=== PATIENT | male | born 1990 | race Caucasian/White ===

== ENCOUNTER 2024-08-08 09:54 | Emergency (ER) | payer BC, SELFPAY ==
[2024-08-08 10:09] VITALS: BP 156/77
--- NOTE | 2024-08-08 10:09 | ED.GENMED ---
ED Provider Triage
<Min Mohan PA-C - Last Filed: 08/08/24 10:12>
-
Patient seen by provider in Triage?: Seen in Triage
Attestation: A medical screening examination has been initiated by a qualified medical provider. Based on the assessment performed at this time, it has been determined that an emergent medical condition may exist and the patient has been informed
that further medical evaluation and possible additional diagnostic testing may be needed.
HPI: 34-year-old male presents to the emergency department for evaluation of left upper quadrant abdominal pain associated with a bulge for the past 2 days. No fevers or chills. No nausea or vomiting.
GENERAL: Alert , in no apparent distress
EYE: No visual abnormalities.
NECK: Trachea midline
ENT: No visible abnormalities.
LUNGS: No acute respiratory distress
NEUROLOGICAL: Alert and oriented
SKIN: Skin intact. No visible changes.
MUSCULOSKELETAL: Moving extremities normally
PSYCH: Normal and appropriate interaction.
This is a medical evaluation conducted in person to initiate diagnostic evaluation and provide initial therapeutics. Please see further documentation by the treating clinician.
History of Present Illness
<Min Mohan PA-C - Last Filed: 08/08/24 10:12>
General
Chief Complaint: Abdominal Pain
Time Seen by Provider: 08/08/24 10:56
<Janet So MD, Resident - Last Filed: 08/08/24 14:11>
General
Source: patient
Nursing documentation reviewed up to this point in time: agreed with
History of Present Illness
History of Present Illness:
34yo M with PMH T1DM, anxiety who presents from home to ED for evaluation of abdominal pain and lump. He reports discomfort and constant pressure in LUQ starting Sunday evening while at rest. He also reports intermittent pain that occurs about
10x per day, lasts briefly, triggered and relieved by moving positions, and rated 3/10 on pain scale. Mild lightheadedness with standing, no vertigo. He had mild nausea this morning that resolved without intervention. Denies vomiting, change in
bowel habits, difficulty eating/drinking. He recently moved to this area and has initial appointment with PCP next week.
Past History
<Janet So MD, Resident - Last Filed: 08/08/24 14:11>
Past History
ED Past Medical History: IDDM (T1DM) and Psychiatric (anxiety)
ED Past Surgical History: None
Patient has exhibited threatening behavior?: No
Social History
Tobacco: Non-smoker
Alcohol: Occasional
Drug: None
Personal:
Living: with family
Family History
Family History: Other (noncontributory)
Review of Systems
<Janet So MD, Resident - Last Filed: 08/08/24 14:11>
Review of Systems
Allergies reviewed?: Yes
Constitutional: Reports no symptoms; Denies fever, fatigue or chills
EENT: Reports no symptoms
Respiratory: Reports no symptoms; Denies cough, hemoptysis or trouble breathing
Cardiac: Reports no symptoms; Denies chest pain, palpitations or syncope
ABD/GI: Reports abdominal pain (see HPI); Denies vomiting, diarrhea, constipated, bloody stools or black stools
: Reports no symptoms
Musculoskeletal: Reports no symptoms
Skin: Reports no symptoms
Neurological: Reports no symptoms
Endocrine: Reports no symptoms
Hematologic/Lymphatic: Reports no symptoms
Psychiatric: Reports no symptoms
Phy Exam
<Janet So MD, Resident - Last Filed: 08/08/24 14:11>
General Physical Exam
General Presentation: well appearing and no apparent distress
General age: appears stated age
General Skin: warm and dry
General Habitus: normal
General Mental: alert
General Hydration: appears well hydrated
Cardiovascular Exam
Cardiovascular Exam: regular rate/rhythm, no edema and no murmur
Pulmonary Exam
Pulmonary Exam: lungs clear, no respiratory distress, no crackles, no rhonchi, no wheezing and no cough
Oxygen Status: room air
Gastrointestinal Exam
Gastrointestinal Exam: non tender, soft, no organomegaly, no pulsatile mass, non distended and other (<1 cm subcutaneous nodule palpable LUQ laterally, mild TTP; no rebound/rigidity/guarding, no peritoneal signs)
Neurological Exam
Neurological Exam: alert, oriented x3, no motor deficits, no sensory deficits and speech normal
Skin Exam
Skin Exam: normal color and warm/dry
Psychiatric Exam
Psychiatric Exam: normal mood/affect
Course
<Min Mohan PA-C - Last Filed: 08/08/24 10:12>
Orders/Labs/Results
Orders:
Orders
08/08/24 10:11
US Abdomen Complete/Upper Urgent
Comment:
Reason For Exam: LUQ pain
08/08/24 10:16
Complete Blood Count/With Diff Urgent
Comprehensive Metabolic Panel Urgent
Lipase Urgent
Abnormal Lab Results
08/08/24
10:16
WBC 4.5 L 10^3/uL
(4.8-10.8)
Glucose 207 H mg/dl
(70-99)
Albumin 5.1 H g/dl
(3.5-5.0)
08/08/24 10:16
08/08/24 10:16
Vital Signs
Initial and Last Documented VS:
Initial Vital Signs
Temp Pulse Resp BP Pulse Ox
97.7 F 75 20 156/77 100
08/08/24 10:09 08/08/24 10:09 08/08/24 10:09 08/08/24 10:09 08/08/24 10:09
Last Documented Vital Signs
Temp Pulse Resp BP Pulse Ox
97.7 F 75 20 156/77 100
08/08/24 10:09 08/08/24 10:09 08/08/24 10:09 08/08/24 10:09 08/08/24 10:09
<Janet So MD, Resident - Last Filed: 08/08/24 14:11>
Orders/Labs/Results
Orders:
Orders
08/08/24 10:11
US Abdomen Complete/Upper Urgent
Comment:
Reason For Exam: LUQ pain
08/08/24 10:16
Complete Blood Count/With Diff Urgent
Comprehensive Metabolic Panel Urgent
Lipase Urgent
Abnormal Lab Results
08/08/24
10:16
WBC 4.5 L 10^3/uL
(4.8-10.8)
Glucose 207 H mg/dl
(70-99)
Albumin 5.1 H g/dl
(3.5-5.0)
08/08/24 10:16
08/08/24 10:16
Vital Signs
Initial and Last Documented VS:
Initial Vital Signs
Temp Pulse Resp BP Pulse Ox
97.7 F 75 20 156/77 100
08/08/24 10:09 08/08/24 10:09 08/08/24 10:09 08/08/24 10:09 08/08/24 10:09
Last Documented Vital Signs
Temp Pulse Resp BP Pulse Ox
97.7 F 75 156/77 100
08/08/24 10:09 08/08/24 10:09 08/08/24 10:09 08/08/24 10:09 08/08/24 10:09
<Arthur Kohler, DO - Last Filed: 08/08/24 11:40>
Orders/Labs/Results
Orders:
Orders
08/08/24 10:11
US Abdomen Complete/Upper Urgent
Comment:
Reason For Exam: LUQ pain
08/08/24 10:16
Complete Blood Count/With Diff Urgent
Comprehensive Metabolic Panel Urgent
Lipase Urgent
Abnormal Lab Results
08/08/24
10:16
WBC 4.5 L 10^3/uL
(4.8-10.8)
Glucose 207 H mg/dl
(70-99)
Albumin 5.1 H g/dl
(3.5-5.0)
08/08/24 10:16
08/08/24 10:16
Vital Signs
Initial and Last Documented VS:
Initial Vital Signs
Temp Pulse Resp BP Pulse Ox
97.7 F 75 20 156/77 100
08/08/24 10:09 08/08/24 10:09 08/08/24 10:09 08/08/24 10:09 08/08/24 10:09
Last Documented Vital Signs
Temp Pulse Resp BP Pulse Ox
97.7 F 75 20 156/77 100
08/08/24 10:09 08/08/24 10:09 08/08/24 10:09 08/08/24 10:09 08/08/24 10:09
<Janet So MD, Resident - Last Filed: 08/08/24 14:11>
MDM/Problems Addressed
Differential Diagnosis Includes:
muscle strain, ventral wall hernia, reactive lymph node
not suspicious for gallbladder disease, pancreatitis
MDM/Problems Addressed:
34yo M with PMH T1DM, anxiety who presents to ED for evaluation of LUQ discomfort and nodule
CBC, CMP, lipase ordered prior to evaluation unremarkable
Will obtain abdominal US
<Janet So MD, Resident - Last Filed: 08/08/24 14:11>
*Critical Care Note
Total Time (30-74mins, 75-104mins- exclusive of procedures): Not Applicable
<Janet So MD, Resident - Last Filed: 08/08/24 14:11>
Update Note
Update Note:
Abdominal ultrasound unremarkable. Suspect muscle strain. Stable for discharge home with supportive measures and follow up with PCP-- has appointment on Sunday. Return to ED precautions reviewed.
Discussed above with patient-- he is understanding and agreeable with plan.
ED Attending Note
<Min Mohan PA-C - Last Filed: 08/08/24 10:12>
-
Portions of this chart may have been created with voice recognition software.� Occasional wrong word or��sound alike� substitutions may have occurred due to the inherent limitations of voice recognition software.
<Arthur Kohler, - Last Filed: 08/08/24 11:40>
ED Attending Note
Patient seen and examined by attending physician: Yes
I performed a history and physical exam of patient and discussed management with resident, I reviewed resident's note and agree with documented findings and plan of care.: Yes
ED Attending Note:
I reviewed and agree with history and treatment plan by Janet So MD. My exam revealed
Physical Exam
General: no apparent distress, not acutely ill
Neck: supple. no meningeal signs. normal posterior pharynx
Heart: s1/s2 regular rate and rhythm, no murmur. equal radial
pulses.
HEENT: Pupils equal round reactive to light, EOMI
Lungs: no acute respiratory distress. clear bilaterally
Abdomen: normal bowel sounds. Mild point tenderness below the 10th rib laterally on the left, no rebound or guarding. no CVAT
Neuro: alert and oriented. no focal neurological deficits cranial nerves II through XII intact
Skin: no rash
Psychiatric: well kept. interactive and cooperative
Extremities: no edema. no calf tenderness. negative homans. good distal pulses
Discharge Plan
Departure
Patient Disposition: Home (Routine Discharge)
Date of Disposition: 08/08/24
Time of Disposition: 13:59
Patient with high blood pressure during this ER visit?: Yes
Discharge Problem:
Abdominal pain
Instructions: Abdominal pain in adults - ED discharge instructions, BLOOD PRESSURE
Referrals:
NONE,* [Family Provider] -
Activity Restrictions/Additional Instructions:
You were seen in the Emergency Room for abdominal discomfort and a lump.
Your blood work was normal. Ultrasound of your abdomen was also normal.
You can try rest, heating pad, and pain relievers such as tylenol for the discomfort.
You have an appointment scheduled with a new Primary Care Provider on 08/12/24. Please keep that appointment.
Return to the Emergency Room if you develop worsening symptoms or new concerns.
Interventions
Interventions:
*Risk Screen - Suicide Last Done: 08/08/24 10:09
*General Assessment Last Done: 08/08/24 10:09
*Neglect/Abuse Screening Last Done: 08/08/24 10:09
ED- Fall Risk Assessment Last Done: 08/08/24 11:39
IH-Iklkab-Mbotevheab Assessment Last Done: 08/08/24 11:39
Discharge Date and Time
Print Language: [place]
[2024-08-08 10:23] LABS: % Basophils 0.7 % (0-2); % Eosinophils 2.4 % (0-6); % Lymphocytes 29.7 % (20.5-51.1); % Monocytes 7.7 % (1.7-9.3); % Neutrophils 59.5 % (42.2-75.2); Absolute Eosinophils 0.1 10^3/uL (0-0.7); Absolute Lymphocytes 1.4 10^3/uL (1.2-3.4); Absolute Monocytes 0.4 10^3/uL (0.1-0.6); Absolute Neutrophils 2.7 10^3/uL (1.4-6.5); Hematocrit 46.8 % (39.0-52.0); Hemoglobin 16.5 g/dL (13.0-18.0); Mean Corp Hgb Conc. 35.3 g/dL (33.0-37.0); Mean Corpuscular Hgb 30.4 pg (27.0-31.0); Mean Corpuscular Volume 86.3 fL (80.0-94.0); Mean Platelet Volume 10.1 fL (7.4-10.4); Nucleated Red Blood Cells % 0 % (-); Platelet Count 232 10^3/uL (130-400); Red Blood Cell Count 5.42 10^6/uL (4.70-6.10); Red Cell Dist. Width 11.8 % (11.5-14.5); White Blood Cell Count 4.5 10^3/uL (4.8-10.8)
[2024-08-08 10:36] LABS: ALT (SGPT) 30 U/L (0-50); AST (SGOT) 29 U/L (17-59); Albumin 5.1 g/dl (3.5-5.0); Alkaline Phosphatase 76 U/L (38-126); Blood Urea Nitrogen 14 mg/dl (9-20); Calcium 9.6 mg/dl (8.4-10.2); Carbon Dioxide 27 mmol/L (22-30); Chloride 101 mmol/L (98-107); Glucose 207 mg/dl (70-99); Lipase 168 U/L (23-300); Potassium 4.3 mmol/L (3.5-5.1); Sodium 138 mmol/L (135-145); Total Bilirubin 0.8 mg/dl (0.2-1.3); Total Protein 7.9 g/dl (6.3-8.2); eGFR > 60.00
[2024-08-08 14:10] VITALS: BP 131/62
== END 2024-08-08 14:13 | disposition home or self-care (01) ==
LOC: EMR 09:54
PROVIDERS: EMERGENCY PHYSICIAN Emergency Medicine
DX: R10.12 Left upper quadrant pain (principal); E11.9 Type 2 diabetes mellitus without complications; Z79.4 Long term (current) use of insulin
CPT/HCPCS: 99284; 76700; 80053; 83690; 85025